=== PATIENT | female | born 1980 | race Caucasian/White ===

== ENCOUNTER 2017-07-08 19:49 | Emergency (ER) | payer OTHER ==
[2017-07-08 20:14] VITALS: BP 142/81
[2017-07-08] MEDS ORDERED: Lidocaine 1% 20 ML MDV INJECT ONE (20:32)
[2017-07-08] MEDS ORDERED: Bacitracin Oint 1 GM U/D Packet TOP ONE (21:13)
--- NOTE | 2017-07-08 21:14 | EDM.PDOC ---
ED HPI GENERAL MEDICAL PROBLEM - General Chief Complaint: Laceration Stated Complaint: CUT ON RT PINKY TOE Time Seen by Provider: 07/08/17 20:30 Source of Information: Reports: Patient History Limitations: Reports: No Limitations - History of Present Illness INITIAL COMMENTS - FREE TEXT/NARRATIVE: Ann Marie is an otherwise healthy female who presents to the ED today after sustaining a right 5th digit laceration from a tent stake. Patient denies any other injuries and her DT is up to date. Onset: Today - Related Data Allergies Allergy/AdvReac Type Severity Reaction Status Date / Time amoxicillin Allergy Joint Pain Verified 07/08/17 20:43 Home Meds: Home Meds NK [No Known Home Meds] 07/08/17 [History] Past Medical History Musculoskeletal History: Reports: Fracture - Past Surgical History GI Surgical History: Reports: Appendectomy Female Surgical History: Reports: Section Social & Family History - Tobacco Use Smoking Status *Q: Never Smoker ED ROS GENERAL - Review of Systems Review Of Systems: ROS reveals no pertinent complaints other than HPI. ED EXAM, SKIN/RASH Exam: See Below Exam Limited By: No Limitations General Appearance: Alert, WD/WN, No Apparent Distress Respiratory/Chest: No Respiratory Distress Cardiovascular: Regular Rate, Rhythm Back Exam: Normal Inspection Extremities: Normal Inspection Neurological: Alert, Oriented, CN II-XII Intact Psychiatric: Normal Affect, Normal Mood Skin: Warm, Dry, Other (2 cm laceration to side and plantar portion of right 5th digit) Lymphatic: No Adenopathy ED SKIN PROCEDURES - Laceration/Wound Repair Right Toes Appearance: Subcutaneous Distal NVT: Neuro & Vascular Intact, No Tendon Injury Anesthetic Type: Local Local Anesthesia - Lidocaine (Xylocaine): 1% Plain Local Anesthetic Volume: 4cc Skin Prep: Chlorhexidine (Hibiciens), Saline Closed with: Sutures Suture Size: other (5-0) # of Sutures: 5 Suture Type: Other (Ethilon) Course - Vital Signs Last Recorded V/S: Last Vital Signs Temp 36.7 C 07/08/17 20:48 Pulse 96 07/08/17 20:48 Resp 16 07/08/17 20:48 BP 142/81 H 07/08/17 20:48 Pulse Ox 98 07/08/17 20:48 Ann Marie is an otherwise healthy 37-year-old female who presents to the emergency department today after sustaining a right fifth toe laceration from a tent stake. Please refer to history of present illness and focused exam, patient's toe was injected with 1% lidocaine, suture repair was done as noted above, bacitracin was applied and dressing. Wound care was discussed in detail, sutures can be removed in 7 days, patient was discharged in stable condition. - Orders/Labs/Meds Meds: Medications Discontinued Medications Generic Name Dose Route Start Last Admin Trade Name Chau PRN Reason Stop Dose Admin Bacitracin 1 dose 07/08/17 21:13 07/08/17 21:20 Bacitracin Oint 1 Gm TOP 07/08/17 21:14 1 dose ONETIME ONE Administration Lidocaine HCl 20 ml 07/08/17 20:32 07/08/17 20:49 Xylocaine 1% INJECT 07/08/17 20:33 20 ml ONETIME ONE Administration Departure - Departure Time of Disposition: 21:30 Disposition: Home, Self-Care 01 Condition: Good Clinical Impression: Laceration of toe Qualifiers: Encounter type: initial encounter Toe: lesser toe Damage to nail status: without damage Foreign body presence: without foreign body Laterality: right Qualified Code(s): S91.114A - Laceration without foreign body of right lesser toe(s) without damage to nail, initial encounter - Discharge Information Instructions: Laceration Care, Adult, [id number] Referrals: PCP,None [Primary Care Provider] - Forms: ED Department Discharge Additional Instructions: Keep clean and dry Bacitracin twice daily for 3 days Suture removal in 7 days Happy Birthday!!!!!!!!!!!!!!!
== END 2017-07-08 21:21 | disposition home or self-care (01) ==
LOC: JP.ED 19:49
DX: S91.114A Laceration without foreign body of right lesser toe(s) without damage to nail, initial encounter (principal); Z90.49 Acquired absence of other specified parts of digestive tract; Z88.1 Allergy status to other antibiotic agents; X58.XXXA Exposure to other specified factors, initial encounter
CPT/HCPCS: 12001; 99283-25

== ENCOUNTER 2024-03-22 11:51 | Emergency (ER) | payer OTHER ==
[2024-03-22 14:46] VITALS: BP 146/73; PULSE 85
== END 2024-03-22 14:43 | disposition home or self-care (01) ==
LOC: JP.ED 11:51
DX: S06.0X0A Concussion without loss of consciousness, initial encounter (principal); S00.03XA Contusion of scalp, initial encounter; Z88.0 Allergy status to penicillin; Z86.19 Personal history of other infectious and parasitic diseases; W01.0XXA Fall on same level from slipping, tripping and stumbling without subsequent striking against object, initial encounter
CPT/HCPCS: 70450; 70450-26; 73140-26-F5; 73140-F5; 99284